=== PATIENT | male | born 1990 | race Caucasian/White ===

== ENCOUNTER 2018-01-13 17:27 | Emergency (ER) | payer BC ==
[~2018-01-13] VITALS: Ht 180.3 cm; Wt 72.1 kg
[2018-01-13 17:37] VITALS: Ht 180.3 cm; Wt 72.1 kg
[2018-01-13 19:41] VITALS: BP 131/85
== END 2018-01-13 19:41 | disposition home or self-care (01) ==
LOC: ED 17:27
DX: S16.1XXA Strain of muscle, fascia and tendon at neck level, initial encounter (principal); S13.9XXA Sprain of joints and ligaments of unspecified parts of neck, initial encounter; G43.909 Migraine, unspecified, not intractable, without status migrainosus; X58.XXXA Exposure to other specified factors, initial encounter; Y93.89 Activity, other specified; Y92.89 Other specified places as the place of occurrence of the external cause; Y99.0 Civilian activity done for income or pay
CPT/HCPCS: 20552; J1885; J2001; J3301